=== PATIENT | female | born 1965 | race African-American/Black ===

== ENCOUNTER 2017-12-23 16:27 | Emergency (ER) | payer BC ==
[~2017-12-23] VITALS: Ht 160 cm; Wt 83.9 kg
[2017-12-23] MEDS ORDERED: NORCO 5-325 TA1 EACH PO (19:16)
[2017-12-23 19:57] VITALS: BP 137/77
== END 2017-12-23 20:00 | disposition home or self-care (01) ==
LOC: ER 16:27
DX: S09.90XA Unspecified injury of head, initial encounter (principal); S16.1XXA Strain of muscle, fascia and tendon at neck level, initial encounter; S39.012A Strain of muscle, fascia and tendon of lower back, initial encounter; F17.210 Nicotine dependence, cigarettes, uncomplicated; V89.2XXA Person injured in unspecified motor-vehicle accident, traffic, initial encounter; Y93.89 Activity, other specified; Y92.89 Other specified places as the place of occurrence of the external cause; Y99.8 Other external cause status